=== PATIENT | female | born 1950 | race Caucasian/White ===

== ENCOUNTER → 2024-02-24 12:22 | Outpatient (REF) | payer OTHER, SELFPAY | LOC: HWWDC 12:22 | PROVIDERS: ATTENDING PHYSICIAN Obstetrics & Gynecology Gynecology; FAMILY PHYSICIAN Family Medicine | DX: Z12.31 Encounter for screening mammogram for malignant neoplasm of breast (principal) | CPT/HCPCS: 77063; 77067 ==

== ENCOUNTER 2024-05-08 19:15 | Emergency (ER) | payer OTHER, SELFPAY ==
[2024-05-08 19:18] VITALS: BP 185/88
--- NOTE | 2024-05-08 20:09 | ED.GENMED ---
History of Present Illness
General
Chief Complaint: Fall
Source: patient
Exam Limitations: none
Time Seen by Provider: 05/08/24 19:51
Nursing documentation reviewed up to this point in time: agreed with
History of Present Illness
History of Present Illness:
Patient reports trip and fall injury 1 week ago. Seen at , had xrays of left ribs, right lower leg. No frature noted. To ED tonight because of large amt of bruising to left lower leg. Reports swelling to left breast. Brought to ED by spouse
for eval.
Past History
Past History
ED Past Medical History: HTN and Hypercholesterolemia
ED Past Surgical History: Cholecystectomy, Gynecological and Other
Social History
Tobacco: Non-smoker
Personal:
Living: with family
Review of Systems
Review of Systems
Allergies reviewed?: Yes
All Other Systems: ROS reviewed and negative except as documented in HPI and ROS
Constitutional: Reports no symptoms
EENT: Reports no symptoms
Respiratory: Reports no symptoms
Cardiac: Reports no symptoms
ABD/GI: Reports no symptoms
: Reports no symptoms
Musculoskeletal: Reports no symptoms
Skin: Reports other (hematoma, bruising LLE, reports swelling to left breast.)
Neurological: Reports no symptoms
Psychiatric: Reports no symptoms
Phy Exam
General Physical Exam
General Presentation: well appearing and no apparent distress
General age: appears stated age
General Skin: warm and dry
General Habitus: normal
General Mental: alert
General Hydration: appears well hydrated
Musculoskeletal Exam
Musculoskeletal Exam: full ROM and neuro vasc intact
Skin Exam
Skin Exam: warm/dry, no rash and other (Large hematoma just below left knee. Bruising tracking down redmond. Full ROM to LLE. No bruising to left breast. She feels left breast is swollen. Breast is soft, no swelling appreciated by me. No bruising
noted)
Psychiatric Exam
Psychiatric Exam: normal mood/affect
Course
Vital Signs
Initial and Last Documented VS:
Initial Vital Signs
Temp Pulse Resp BP Pulse Ox
97.9 F 79 20 185/88 97
05/08/24 19:18 05/08/24 19:18 05/08/24 19:18 05/08/24 19:18 05/08/24 19:18
Last Documented Vital Signs
Temp Pulse Resp BP Pulse Ox
97.9 F 79 20 185/88 97
05/08/24 19:18 05/08/24 19:18 05/08/24 19:18 05/08/24 19:18 05/08/24 19:18
*Critical Care Note
Total Time (30-74mins, 75-104mins- exclusive of procedures): Not Applicable
Update Note
Update Note:
Patient to ED for eval of bruising to LLE, pain and swelling to left breast s/p fall 1 week ago. Large hematom to left lower leg below knee. Full ROM, neurovascularly intact. No bruising to left breast. Breast tissue is soft, no swelling
appreciated. Recommend fallon wrapping during day, contimue to ice breast, can switch to heat to LLE. SHe is discharged home and will follow up wt PCP.
ED Attending Note
-
Portions of this chart may have been created with voice recognition software.� Occasional wrong word or��sound alike� substitutions may have occurred due to the inherent limitations of voice recognition software.
Discharge Plan
Departure
Patient Disposition: Home (Routine Discharge)
Date of Disposition: 05/08/24
Time of Disposition: 20:08
Patient with high blood pressure during this ER visit?: No
Condition: Good
Covid-19: Not Applicable
Discharge Problem:
Contusion of breast, Contusion of left leg
Instructions: Hematoma
Activity Restrictions/Additional Instructions:
FOllow up with your family doctor.
Interventions
Interventions:
*Risk Screen - Suicide Last Done: 05/08/24 19:18
*General Assessment Last Done: 05/08/24 19:18
*Neglect/Abuse Screening Last Done: 05/08/24 19:18
ED-Musculoskeletal Assessment Last Done: 05/08/24 20:11
ED- Neurological Assessment Last Done: 05/08/24 20:11
ED-Skin Assessment Last Done: 05/08/24 20:11
Discharge Date and Time
Print Language: SLOVAK
[2024-05-08 20:19] VITALS: BP 189/85
== END 2024-05-08 20:22 | disposition home or self-care (01) ==
LOC: EMR 19:15
PROVIDERS: EMERGENCY PHYSICIAN Emergency Medicine; FAMILY PHYSICIAN Family Medicine
DX: S80.12XA Contusion of left lower leg, initial encounter (principal); S20.02XA Contusion of left breast, initial encounter; W01.0XXA Fall on same level from slipping, tripping and stumbling without subsequent striking against object, initial encounter; I10 Essential (primary) hypertension; E78.00 Pure hypercholesterolemia, unspecified; Z90.49 Acquired absence of other specified parts of digestive tract
CPT/HCPCS: 99282

== ENCOUNTER → 2024-07-13 09:21 | Outpatient (REF) | payer OTHER, SELFPAY | LOC: HWRAD 09:21 | PROVIDERS: ATTENDING PHYSICIAN Obstetrics & Gynecology Gynecology; FAMILY PHYSICIAN Family Medicine | DX: Z13.820 Encounter for screening for osteoporosis (principal); M85.89 Other specified disorders of bone density and structure, multiple sites; Z78.0 Asymptomatic menopausal state | CPT/HCPCS: 77080 ==

== ENCOUNTER 2024-07-14 10:53 | Emergency (ER) | payer OTHER, SELFPAY ==
[2024-07-14 11:11] VITALS: BP 190/98
[2024-07-14 11:34] LABS: % Basophils 0.4 % (0-2); % Eosinophils 2.8 % (0-6); % Immature Granulocytes 0.3 % (0-0.5); % Lymphocytes 25.3 % (20.5-51.1); % Monocytes 8.3 % (1.7-9.3); % Neutrophils 62.9 % (42.2-75.2); Absolute Basophils 0.1 10^3/uL (0-0.2); Absolute Eosinophils 0.3 10^3/uL (0-0.7); Absolute Lymphocytes 2.9 10^3/uL (1.2-3.4); Absolute Neutrophils 7.3 10^3/uL (1.4-6.5); Hemoglobin 13.5 g/dL (12.0-16.0); Mean Corp Hgb Conc. 32.1 g/dL (33.0-37.0); Mean Corpuscular Hgb 26.5 pg (27.0-31.0); Mean Corpuscular Volume 82.5 fL (81.0-99.0); Mean Platelet Volume 7.9 fL (7.4-10.4); Nucleated Red Blood Cells % 0 %; Platelet Count 378 10^3/uL (130-400); Red Blood Cell Count 5.09 10^6/uL (4.20-5.40); Red Cell Dist. Width 13.9 % (11.5-14.5); White Blood Cell Count 11.6 10^3/uL (4.8-10.8)
[2024-07-14 11:41] LABS: INR 1.09; PT 14.4 Sec (11.4-14.6)
[2024-07-14 11:45] LABS: ALT (SGPT) 24 U/L (0-35); AST (SGOT) 24 U/L (14-36); Albumin 4.5 g/dl (3.5-5.0); Alkaline Phosphatase 60 U/L (38-126); Blood Urea Nitrogen 23 mg/dl (7-17); Calcium 9.9 mg/dl (8.4-10.2); Carbon Dioxide 29 mmol/L (22-30); Chloride 98 mmol/L (98-107); Glucose 95 mg/dl (70-99); Potassium 3.9 mmol/L (3.5-5.1); Sodium 134 mmol/L (135-145); Total Bilirubin 0.8 mg/dl (0.2-1.3); Total Protein 7.1 g/dl (6.3-8.2); eGFR > 60.00
[2024-07-14 11:57] LABS: Troponin I < 0.012 ng/ml
[2024-07-14 12:49] VITALS: BP 152/84
[2024-07-14 13:00] VITALS: BP 163/84
--- NOTE | 2024-07-14 13:32 | ED.GENMED ---
History of Present Illness
General
Chief Complaint: Chest Pain
Source: patient
Time Seen by Provider: 07/14/24 13:15
History of Present Illness
History of Present Illness:
73yoF with a history of hypertension, hyperlipidemia, and type 2 diabetes presenting with her for evaluation of chest pain. Patient reports central and right sided chest discomfort that initially began yesterday afternoon. The pain woke
her up from sleep initially. Pain is intermittent and last for several seconds at a time. Nothing seems to make the pain better or worse. Pain is nonradiating. She is otherwise asymptomatic and denies any fevers, cough, diaphoresis, nausea,
vomiting, shortness of breath, dizziness, paresthesias. She denies any history of coronary artery disease.
Past History
Past History
ED Past Medical History: HTN and Hypercholesterolemia
ED Past Surgical History: Cholecystectomy, Gynecological and Other
Social History
Tobacco: Non-smoker
Personal:
Living: with family
Phy Exam
General Physical Exam
General Presentation: well appearing and no apparent distress
General age: appears stated age
General Skin: warm and dry
General Habitus: normal
General Mental: alert
ENT Exam
ENT Exam: normocephalic
Cardiovascular Exam
Cardiovascular Exam: regular rate/rhythm, no murmur and normal peripheral pulses (2+ radial pulses bilaterally)
Pulmonary Exam
Pulmonary Exam: lungs clear, no respiratory distress, no rales, no crackles, no rhonchi and no wheezing
Neurological Exam
Neurological Exam: alert
Carlos Coma Scale
Eye Opening: Spontaneous
Verbal Response: Oriented
Motor Response: Obeys Commands
GCS Total Score: 15
Skin Exam
Skin Exam: normal color and warm/dry
Psychiatric Exam
Psychiatric Exam: normal mood/affect
Scores
Heart Score for Chest Pain Patients
STEMI patient?: No
History: Slightly or Non-Suspicious
ECG: Normal
Age: >/= 65 years
Risk Factors: >/= 3 Risk Factors or History of CAD
Troponin: </= Normal Limit
Heart Score for Chest Pain Patients: 4
Heart Score Risk: 20.3% MACE over next 6 weeks
Course
Orders/Labs/Results
Orders:
Orders
07/14/24 10:54
EKG [Electrocardiogram (*1)] Urgent
Reason for Study: Chest Pain
EKG- Treatment ONCE
07/14/24 11:20
Complete Blood Count/With Diff Urgent
Comprehensive Metabolic Panel Urgent
PT/INR [Prothrombin Time] Urgent
Troponin I Urgent
07/14/24 13:32
Electrocardiogram (*1) Urgent
Reason for Study: Chest Pain
EKG- Treatment ONCE
CR Chest - 2 Views Urgent
Comment:
Reason For Exam: CP
07/14/24 13:34
Troponin I Urgent
Abnormal Lab Results
07/14/24
11:20
WBC 11.6 H 10^3/uL
(4.8-10.8)
MCH 26.5 L pg
(27.0-31.0)
MCHC 32.1 L g/dL
(33.0-37.0)
Absolute Neuts (auto) 7.3 H 10^3/uL
(1.4-6.5)
Absolute Monos (auto) 1.0 H 10^3/uL
(0.1-0.6)
Sodium 134 L mmol/L
(135-145)
BUN 23 H mg/dl
(7-17)
07/14/24 11:20
07/14/24 11:20
Vital Signs
Initial and Last Documented VS:
Initial Vital Signs
Temp Pulse Resp Pulse Ox
98.4 F 74 18 98
07/14/24 11:08 07/14/24 11:08 07/14/24 11:08 07/14/24 11:08
Last Documented Vital Signs
Temp Pulse Resp BP Pulse Ox
98.4 F 68 20 163/84 97
07/14/24 11:08 07/14/24 13:45 07/14/24 13:30 07/14/24 13:00 07/14/24 13:45
MDM/Problems Addressed
Differential Diagnosis Includes:
73yoF here with R sided chest pain since yesterday. Intermittent lasting several seconds at a time. Nothing seems to make it better or worse. Otherwise asymptomatic. She is hypertensive with otherwise normal vitals. She is well appearing in no
distress. Exam reassuring. Differential diagnosis includes but is not limited to: ACS, arrhythmia, pneumonia, pleural effusion, musculoskeletal, less likely PE
Initial ED plan: Cardiac labs and EKG obtained in triage. EKG shows NSR without ischemic changes and troponin WNL. Will check repeat troponin/EKG and CXR.
*EKG
Interpreted by ED Provider?: Yes
EKG Intrepretation Date: 07/14/24
Heart Rate: 70
Rate: normal
Rhythm: sinus
[place]: normal axis
Interval: normal interval
QRS Pattern: normal QRS
Ischemia: no ischemia
*Critical Care Note
Total Time (30-74mins, 75-104mins- exclusive of procedures): Not Applicable
Update Note
Update Note:
Repeat EKG and troponin unchanged. CXR is clear. HEART score is 4. No indication for admission at this and patient eager to be discharged. Advised close f/u with PCP and ED return precautions discussed. She expressed understanding and was discharged
in stable condition.
ED Attending Note
-
Portions of this chart may have been created with voice recognition software.� Occasional wrong word or��sound alike� substitutions may have occurred due to the inherent limitations of voice recognition software.
Discharge Plan
Departure
Patient Disposition: Home (Routine Discharge)
Date of Disposition: 07/14/24
Time of Disposition: 14:37
Patient with high blood pressure during this ER visit?: Yes
Discharge Problem:
Chest pain
Instructions: Chest Pain PCP Follow Up
Referrals:
Eleno Finnegan MD [Family Provider] -
Activity Restrictions/Additional Instructions:
Please call your family doctor on Tuesday to schedule a follow-up appointment. Return to the ER with any new or worsening symptoms.
Interventions
Interventions:
*Risk Screen - Suicide Last Done: 07/14/24 11:08
*General Assessment Last Done: 07/14/24 11:08
*Neglect/Abuse Screening Last Done: 07/14/24 11:08
*ED COVID-19 Vaccine History Last Done: 07/14/24 11:08
*Nursing Disposition Last Done: 07/14/24 14:51
ED- Cardiac Assessment Last Done: 07/14/24 13:32
Discharge Date and Time
Discharge Date/Time: 07/14/24 14:52
Print Language: IRISH
[2024-07-14 14:18] LABS: Troponin I < 0.012 ng/ml
== END 2024-07-14 14:52 | disposition home or self-care (01) ==
LOC: EMR 10:53
PROVIDERS: Physician Assistant; EMERGENCY PHYSICIAN Emergency Medicine; FAMILY PHYSICIAN Family Medicine
DX: R07.89 Other chest pain (principal); I10 Essential (primary) hypertension; E78.00 Pure hypercholesterolemia, unspecified; E11.9 Type 2 diabetes mellitus without complications; Z90.49 Acquired absence of other specified parts of digestive tract
CPT/HCPCS: 99285; 71046; 80053; 84484; 85025; 85610; 93005

== ENCOUNTER 2024-07-20 05:16 | Inpatient (IN) | payer OTHER, SELFPAY ==
[2024-07-19 22:40] VITALS: BP 132/59
[2024-07-19 22:42] VITALS: BP 132/59; BMI 34.6
[2024-07-19 22:46] LABS: % Basophils 0.4 % (0-2); % Eosinophils 0.4 % (0-6); % Immature Granulocytes 0.7 % (0-0.5); % Lymphocytes 5.5 % (20.5-51.1); % Monocytes 3.3 % (1.7-9.3); % Neutrophils 89.7 % (42.2-75.2); Absolute Basophils 0.1 10^3/uL (0-0.2); Absolute Eosinophils 0.1 10^3/uL (0-0.7); Absolute Immature Granulocytes 0.1 10^3/uL (0-0.05); Absolute Lymphocytes 0.9 10^3/uL (1.2-3.4); Absolute Monocytes 0.5 10^3/uL (0.1-0.6); Absolute Neutrophils 14.6 10^3/uL (1.4-6.5); Hematocrit 43.7 % (37.0-47.0); Hemoglobin 13.9 g/dL (12.0-16.0); Mean Corp Hgb Conc. 31.8 g/dL (33.0-37.0); Mean Corpuscular Hgb 26.4 pg (27.0-31.0); Mean Corpuscular Volume 82.9 fL (81.0-99.0); Mean Platelet Volume 7.8 fL (7.4-10.4); Nucleated Red Blood Cells % 0 %; Platelet Count 323 10^3/uL (130-400); Red Blood Cell Count 5.27 10^6/uL (4.20-5.40); Red Cell Dist. Width 13.9 % (11.5-14.5); White Blood Cell Count 16.2 10^3/uL (4.8-10.8)
[2024-07-19 23:09] LABS: Blood Urea Nitrogen 21 mg/dl (7-17); Calcium 8.3 mg/dl (8.4-10.2); Carbon Dioxide 25 mmol/L (22-30); Chloride 99 mmol/L (98-107); Estimated Creatinine Clearance 77 ml/min; Glucose 160 mg/dl (70-99); Sodium 132 mmol/L (135-145); eGFR > 60.00
[2024-07-19 23:30] VITALS: BP 124/63
[2024-07-20] VITALS (14 sets, daily range): BP systolic 111–154; BP diastolic 57–87; BMI 34.6
[2024-07-20 00:43] LABS: Troponin I < 0.012 ng/ml
--- NOTE | 2024-07-20 00:47 | ED.GENMED ---
History of Present Illness
General
Chief Complaint: Fall
Time Seen by Provider: 07/19/24 23:47
History of Present Illness
History of Present Illness:
73-year-old female presents to the emergency department for evaluation of right ankle injury after a fall. She states for the past several days she has felt lightheaded and nauseated, went to the bathroom when she felt dizzy and fell to the ground.
Arrives with an obvious deformity to the right ankle. Denies any current dizziness. Does have some degree of heartburn. Was seen in this ER 5 days ago for chest pain
Past History
Past History
ED Past Medical History: HTN and Hypercholesterolemia
ED Past Surgical History: Cholecystectomy, Gynecological and Other
Social History
Tobacco: Non-smoker
Personal:
Living: with family
Review of Systems
Review of Systems
Allergies reviewed?: Yes
All Other Systems: ROS reviewed and negative except as documented in HPI and ROS
Phy Exam
Physical Exam
Physical Exam:
GEN: Well appearing, NAD, WDWN
HEENT: Oral mucosa moist, no scleral icterus
Cardiac: Regular rate
Lung: No respiratory distress, no tachypnea
MSK: Deformity to the right ankle with an anteriorly prominent distal tibia, no open wounds
Skin: Good color, no pallor or jaundice, no rashes
Neuro: AO x3, moves all extremities freely
Psych: Calm, cooperative
Course
Orders/Labs/Results
Orders:
Orders
07/19/24 22:39
Electrocardiogram (*1) Urgent
Reason for Study: Chest Pain
Ankle, Right 3 view CR [CR Ankle - Right Min 3 Views *] Urgent
Comment:
Reason For Exam: fell, right ankle deformity
07/19/24 22:40
EKG- Treatment ONCE
07/19/24 22:41
Basic Metabolic Panel Urgent
Comment: NO K
Complete Blood Count/With Diff Urgent
07/20/24 00:09
Troponin I Urgent
07/20/24 01:08
CR Ankle - Right 2 Views Urgent
Comment:
Reason For Exam: post reduction
07/20/24 01:45
Calcium 200mg(Ca. Carb. 500mg) [Tums Chewable Tablet] 400 mg PO NOW STA
Abnormal Lab Results
07/19/24
22:41
WBC 16.2 H 10^3/uL
(4.8-10.8)
MCH 26.4 L pg
(27.0-31.0)
MCHC 31.8 L g/dL
(33.0-37.0)
Abs Immat Gran (auto) 0.1 H 10^3/uL
(0-0.05)
Absolute Neuts (auto) 14.6 H 10^3/uL
(1.4-6.5)
Absolute Lymphs (auto) 0.9 L 10^3/uL
(1.2-3.4)
Immature Gran % 0.7 H %
(0-0.5)
Neutrophils % 89.7 H %
(42.2-75.2)
Lymphocytes % 5.5 L %
(20.5-51.1)
Sodium 132 L mmol/L
(135-145)
BUN 21 H mg/dl
(7-17)
Glucose 160 H mg/dl
(70-99)
Calcium 8.3 L mg/dl
(8.4-10.2)
07/19/24 22:41
07/20/24 00:22
Vital Signs
Initial and Last Documented VS:
Initial Vital Signs
BP
132/59
07/19/24 22:40
Last Documented Vital Signs
Temp Pulse Resp BP Pulse Ox
97.9 F 87 17 129/62 98
07/19/24 22:42 07/20/24 03:30 07/20/24 03:30 07/20/24 03:00 07/20/24 03:30
Procedures
Splinting/Sling Placement
Right Ankle:
Procedure completed by: Liam Hector PA-C
Pre-splint extermity exam: abnormal
Type of splint: sugar-tong and posterior short leg
Splint material: fiberglass
Splint checked by provider?: Yes
Normal distal neurovascular exam?: Yes
Joint/Fracture Reduction
Right Ankle:
Indication for procedure:: Displaced trimalleolar fracture
Procedure completed by: Liam Hector PA-C
Joint reduced: without anesthesia
Anesthesia/sedation: 1% Lidocaine and Injection to joint space
Injury was: closed
Further treatement: needs further treatment
Post reduction exam: unstable
Capillary Refill: normal
Normal distal neurovascular exam?: Yes
MDM/Problems Addressed
MDM/Problems Addressed:
Given patient's advanced age she is not suitable to be discharged home with crutches for ambulation. Trimalleolar fracture required reduction with hematoma block anesthesia in the emergency department and this was successful and postreduction
x-rays. Unclear etiology to her general malaise and vomiting that brought her in, she does have leukocytosis however some of this may be acute phase reactant due to pain. Will be admitted to the hospitalist service for further management and
consideration of PT OT and case management consultations
*Critical Care Note
Total Time (30-74mins, 75-104mins- exclusive of procedures): Not Applicable
ED Attending Note
-
Portions of this chart may have been created with voice recognition software.� Occasional wrong word or��sound alike� substitutions may have occurred due to the inherent limitations of voice recognition software.
Discharge Plan
Departure
Patient Disposition: Admit
Date of Disposition: 07/20/24
Time of Disposition: 02:55
Presentation/result/management discussed w/ accepting MD/DO: Hospitalist
Discharge Problem:
Closed right trimalleolar fracture
Prescriptions:
No Action
doxepin 50 mg Capsule
50 mg PO HS
verapamil 240 mg Tablet Extended Release
240 mg PO DAILY
pravastatin 20 mg Tablet
20 mg PO HS
losartan-hydrochlorothiazide 50-12.5 mg Tablet
1 tab PO QPM
Xiidra 5 % Dropperette
1 drp BOTH EYES DAILY
Ozempic 1 mg/dose (4 mg/3 mL) Pen Injector
1 mg SC GALAN
Referrals:
Eleno Finnegan MD [Family Provider] -
Interventions
Interventions:
*Risk Screen - Suicide Last Done: 07/19/24 22:52
*General Assessment Last Done: 07/19/24 22:52
*Neglect/Abuse Screening Last Done: 07/19/24 22:52
*ED COVID-19 Vaccine History Last Done: 07/19/24 22:52
ED-Musculoskeletal Assessment Last Done: 07/19/24 23:00
ED- Neurological Assessment Last Done: 07/19/24 23:00
ED-Skin Assessment Last Done: 07/19/24 23:00
Discharge Date and Time
Print Language: SCOTTISH
--- NOTE | 2024-07-20 04:31 | W.PN.UPDATE ---
Update Note
Progress Note Update
With R ankle fx
Will require surgery
CT scan ordered by me
Anticipate surgery for Saturday 07/21
thanks
GGMD
--- NOTE | 2024-07-20 05:11 | HPS.HSE ---
Family Physician
-
Family Physician: Eleno Finnegan MD
Chief Complaint
-
R Ankle Pain s/p Fall
History of Present Illness
Patient is a 73y F with PMH significant for hypertension, dyslipidemia and insomnia who presents to ED complaining of R ankle pain s/p fall. Patient states that she was in the bathroom this evening when she developed sudden onset of epigastric
pain. She notes that she gets this periodically and it has been attributed to hiatal hernia. She became dizzy (which has also happened during such episodes in the past) and she fell. She did not lose consciousness nor strike her head. Patient
noted immediate pain in the R ankle after the fall. She presented to the ED for evaluation where imaging reveals trimalleolar fracture of the R ankle.
Medical History
Past Medical History
Past Medical History: Reports Other
Additional Past Medical History:
Hypertension
DM-II
Dyslipidemia
Depression / Insomnia
GERD / Hiatal Hernia
Past Surgical History: Reports Other
Additional Past Surgical History:
Abdominoplasty
Bilateral Breast Reduction
Left TKA
Cholecystectomy
Tubal Ligation
Social History
Tobacco: Former Smoker (Quit smoking over 50 years ago.)
Alcohol: Occasional
Drug: None
Family History
Family History: Other (Father: Premature CAD (30s))
Allergies / Home Medications
Allergies reflects when Allergies were last updated in [facility].
Home Medications with original date entered in [facility]
Allergy/Medication List:
Allergies
Allergy/AdvReac Type Severity Reaction Status Date / Time
clarithromycin [From Biaxin] Allergy Unknown Verified 05/08/24 19:23
Penicillins Allergy Unknown Verified 05/08/24 19:23
Sulfa (Sulfonamide Allergy Unknown Verified 05/08/24 19:23
Antibiotics)
Home Medications
doxepin 50 mg capsule 50 mg PO HS 07/19/24
lifitegrast 5 % eye drops in a dropperette (Xiidra) 1 drp BOTH EYES DAILY 07/19/24
losartan 50 mg-hydrochlorothiazide 12.5 mg tablet 1 tab PO QPM 07/19/24
pravastatin 20 mg tablet 20 mg PO HS 07/19/24
semaglutide 1 mg/dose (4 mg/3 mL) subcutaneous pen injector (Ozempic) 1 mg SC GALAN 07/19/24
verapamil 240 mg tablet,extended release 240 mg PO DAILY 07/19/24
Review of Systems
-
History Source: Patient
A 12 point ROS was completed and negative except as noted: Yes
Constitutional: Denies Fever or Chills
Respiratory: Denies Cough or Trouble Breathing
Cardiac: Denies Chest Pain or Palpitations
Abdomen/GI: Denies Abdominal Pain, Nausea, Vomiting or Diarrhea
: Denies Dysuria or Frequency
Musculoskeletal: Reports Joint Pain and Joint Swelling; Denies Edema
Neurological: Reports Dizzy; Denies Headache
Psych: Denies Depression or Anxiety
Physical Exam
Vital Signs
Vital Signs
Temp Pulse Resp BP Pulse Ox
97.9 F 72 14 134/72 96
07/19/24 22:42 07/20/24 04:00 07/20/24 04:00 07/20/24 04:00 07/20/24 04:00
Physical Exam
General: Other (73y F in no acute distress.)
HEENT: Moist mucous membranes
Respiratory: Clear; No Wheezes, Rales or Rhonchi
Cardiac: S1/S2 and Regular Rhythm; No Murmur
GI: Soft, Non Tender, Non Distended and Normal Bowel Sounds
Musculoskeletal: No Clubbing, No Cyanosis and Other (R lower leg wrapped in JOHNNY / splint. Neurovasc intact distally.)
Neuro: AO x 3
Laboratory Results
-
07/19/24 22:41
07/20/24 00:22
Laboratory Results
Total Bilirubin Cancelled 07/20/24 00:22
AST Cancelled 07/20/24 00:22
ALT Cancelled 07/20/24 00:22
Alkaline Phosphatase Cancelled 07/20/24 00:22
Troponin I < 0.012 ng/ml 07/20/24 00:09
Impression/Plan
-
A/P: Patient is a 73y F with PMH significant for hypertension, DM-II and hiatal hernia who presents to ED complaining of R ankle pain s/p fall.
Trimalleolar Fracture of R Ankle
- Admit for further evaluation and treatment.
- Maintain splint / immobilization. Non-weight bearing.
- Pain control / supportive care.
- Ortho eval for operative repair.
Fall at Home
Prolonged QTc
- No reported syncope, LOC, etc.
- Monitor on tele overnight / repeat EKG in the AM.
- Avoid QT prolonging medications.
- Cardiology evaluation for additional recommendations.
Benign Hypertension
- Hold lisinopril / HCT acutely.
- Continue verapamil with holding parameters.
Depression / Insomnia
- Hold doxepin for now given prolonged QT.
Pre-DM
- Patient reports 'pre-diabetes' - currently on semaglutide.
- Hold this acutely.
- Follow glucose and cover with SSI if needed.
- Update A1C.
DVT Prophylaxis: SCDs
Code Status: Full
--- NOTE | 2024-07-20 07:11 | PTCARENOTE ---
Pt received at 0610 on 07/20. Resident pulled over from stretcher to bed d/t Right ankle fx. Pt placed on tele and showing NSR. VSS. Pt alert and oreinted x3. Pt oriented to room and able to make needs known, call denise within reach.
--- NOTE | 2024-07-20 07:35 | CON.CAR ---
Addendum entered and electronically signed by Alexus Dye DO 07/20/24 18:11:
I saw and examined the patient.
The Outside Physical Damage Appraiser's note was reviewed and I agree with the note.
Comment: I had the pleasure to see Evon for preoperative cardiac risk assessment following her presentation to [facility] ED after a fall at home resulting in displaced fracture of her right ankle. Evon is a 73 year old female with PMH of
HTN, HLD, insomnia, prediabetes and hiatal hernia. She presented to [facility] after a fall at home. She was in the bathroom yesterday evening and felt like she was starting with a hiatal hernia attack with sudden onset epigastric pain. Pain became more
intense and she felt lightheaded and fell down to the ground. She notes she did not hit her head, but states it all happened so quick she is unsure if she lost consciousness or not. She noted immediate pain in her R ankle after the fall and came to
ER for evaluation. In ER, she was noted to have trimalleolar fracture of the R ankle. She was admitted and plan is for surgical repair in AM 07/21. She reports no significant cardiac history, however was previously seen by a health claims examiner in [place]
'decades ago'. ECG in ER SR with prolonged QTc of 558ms. She notes she has not been drinking much fluid the past few days and feels she is likely dehydrated. Labwork overall unremarkable, however K not resulted due to hemolysis. She notes history of
syncope that is typically related to hiatal hernia pain which makes her feel lightheaded. Of note, she was seen in [facility] last week for evaluation of chest discomfort that started while sitting watching TV on her couch. She states pain last week was
different from her usual hiatal hernia pain and was higher in her chest, more substernal. Workup in ER at the time was unremarkable and she believes it was due to gas. She has had no recurrence of the chest pain since that time. Feels well currently
other than feeling tired.
Repeat electrocardiogram 07/20/2024: Normal sinus rhythm with voltage criteria for LVH and possible inferior infarct pattern [also noted in 2021 study]. QTc interval has improved now 421 ms
2D echocardiogram 07/20/2024 with normal biventricular size and systolic function without regional wall motion abnormalities and EF estimated 61% with grade 1 diastolic dysfunction. She has trileaflet sclerotic aortic valve with mild aortic
regurgitation. Trace mitral and tricuspid regurgitation. No evidence of pulmonary hypertension. No pericardial effusion.
Pertinent lab work: WBC elevated 16.2. Hemoglobin 13.9. Platelets 332. Sodium remains low at 130, previously 132. Potassium 3.8. BUN/creatinine 22/0.7. Cardiac troponin less than 0.012. Magnesium 2.1.
Chest x-ray 2 views 07/14/2024 with clear lungs and no acute disease of the chest
General: NAD
HEENT: mmm
Respiratory: Bronchovesicular breath sounds, clear.
Cardiac: S1/S2 and Regular Rhythm, no murmur
EXT: No edema. Splint on right ankle
Neuro: AO x 3 and Nonfocal/Grossly Intact
Plan:
Plan:
-Presented after fall which resulted in trimalleolar R ankle fracture.
-Orthopedics consulted; plan is for surgical repair 07/21.
-Patient's echocardiogram shows normal biventricular size and systolic function with no hemodynamically significant valve pathology. Repeat EKG stable without acute ischemic changes and improved QTc interval.
-No arrhythmias noted so far on telemetry
-Stable blood pressure/heart rate trends
-Troponin not elevated
-She is lower cardiac risk and may proceed with surgery as planned.
-Please continue on telemetry monitoring in the perioperative period. Please repeat twelve-lead EKG following surgery
History of dizziness/lightheadedness prior to fall with history of prior syncope in the setting of GI pain suggestive of vasovagal events
-Continue to monitor on telemetry
-Consider outpatient nuclear monitoring technician
-Avoid QT prolonging agents
-Discontinue hydrochlorothiazide given hyponatremia and monitor for improvement
-Recommend outpatient cardiac follow-up
History of hypertension
-Would hold hydrochlorothiazide given hyponatremia
-Monitor blood pressure trends losartan currently held
-Continue verapamil
History of type 2 diabetes mellitus
-On outpatient Ozempic-please make anesthesia aware
-Consider checking hemoglobin A1c if not recently done
-Diabetic management per medicine service
History of hyperlipidemia on pravastatin�continue
Original Note:
Consultation
Consultation Request
Date/Time Consultation Requested: 07/20/2024
Date/Time Consultation Performed: 07/20/2024
Requesting Provider: Dr. Stanley
Performing Provider: Keren Killian PA-C for Dr. Dye
Reason for Consultation: Fall, prolonged QT
Medical History
-
History of Present Illness:
HPI: Evon is a 73 year old female with PMH of HTN, HLD, insomnia, prediabetes and hiatal hernia. She presented to [facility] after a fall at home. She was in the bathroom yesterday evening and felt like she was starting with a hiatal hernia attack with
sudden onset epigastric pain. Pain became more intense and she felt lightheaded and fell down to the ground. She notes she did not hit her head, but states it all happened so quick she is unsure if she lost consciousness or not. She noted immediate
pain in her R ankle after the fall and came to ER for evaluation. In ER, she was noted to have trimalleolar fracture of the R ankle. She was admitted and plan is for surgical repair in AM 12. She reports no significant cardiac history, however
was previously seen by a health claims examiner in [place] 'decades ago'. ECG in ER SR with prolonged QTc of 558ms. She notes she has not been drinking much fluid the past few days and feels she is likely dehydrated. Labwork overall unremarkable, however K
not resulted due to hemolysis. She notes history of syncope that is typically related to hiatal hernia pain which makes her feel lightheaded. Of note, she was seen in [facility] last week for evaluation of chest discomfort that started while sitting
watching TV on her couch. She states pain last week was different from her usual hiatal hernia pain and was higher in her chest, more substernal. Workup in ER at the time was unremarkable and she believes it was due to gas. She has had no recurrence
of the chest pain since that time. Feels well currently other than feeling tired.
PMH:
HTN
HLD
Prediabetes
Insomnia
GERD/Hiatal hernia
Past Medical History
Past Medical History: Other (In HPI)
Past Surgical History: Other (b/l breast reduction, L TKA, cholecystectomy, tubal ligation)
Social History
Tobacco: Former Smoker
Alcohol: Occasional
Drug: None
Personal:
Living: With Family
Employment: Retired
Family History
Family History: Early CAD (Father had TN in his 30s)
Allergies / Home Medications
Allergy/AdvReac Type Severity Reaction Status Date / Time
clarithromycin [From Biaxin] Allergy Unknown Verified 05/08/24 19:23
Penicillins Allergy Unknown Verified 05/08/24 19:23
Sulfa (Sulfonamide Allergy Unknown Verified 05/08/24 19:23
Antibiotics)
�Medication �Instructions �Recorded �Confirmed �Type
doxepin 50 mg capsule 50 mg PO HS 07/19/24 07/19/24 History
lifitegrast 5 % eye drops in a 1 drp BOTH EYES DAILY 07/19/24 07/19/24 History
dropperette (Xiidra)
losartan 50 mg-hydrochlorothiazide 1 tab PO QPM 07/19/24 07/19/24 History
12.5 mg tablet
pravastatin 20 mg tablet 20 mg PO HS 07/19/24 07/19/24 History
semaglutide 1 mg/dose (4 mg/3 mL) 1 mg SC GALAN 07/19/24 07/19/24 History
subcutaneous pen injector (Ozempic)
verapamil 240 mg tablet,extended 240 mg PO DAILY 07/19/24 07/19/24 History
release
Review of Systems
-
History Source: Patient
All other systems: Negative unless noted
Physical Exam
Vital Signs
Temp Pulse Resp BP Pulse Ox
98.2 F 75 18 154/70 98
07/20/24 06:23 07/20/24 06:23 07/20/24 06:23 07/20/24 06:23 07/20/24 06:23
Lab Results
07/19/24 22:41
Troponin I < 0.012 ng/ml 07/20/24 00:09
Physical Exam
General: Well Developed, Well Nourished and No Apparent Distress
HEENT: Normocephalic, Anicteric and Moist Mucous Membranes
Respiratory: Clear and Non Labored Respirations
Cardiac: S1/S2 and Regular Rhythm
Musculoskeletal: No Clubbing and No Cyanosis
Skin: Warm and Dry
Neuro: AO x 3 and Nonfocal/Grossly Intact
Psych: Calm
Impression / Plan
-
PCP: Dr. Finnegan
Tank Truck Milk Receiver: None prior to admission
Impression:
Presented with fall, lightheadedness
Trimalleolar R ankle fracture
Prolonged QT on ECG
Possible syncope
HTN
HLD
Prediabetes
Insomnia
GERD/Hiatal hernia
Echo 07/20/2024: Study pending
Plan:
-Presented after fall which resulted in trimalleolar R ankle fracture. Plan is for surgical repair 07/21.
-Reports sudden onset dizziness/lightheadedness prior to fall. Does not believe she lost consciousness or hit her head.
-Does have history of syncope which she feels have been related to pain from hiatal hernia, happening once every few years.
-No recent cardiac evaluation. Will check echo.
-No arrhythmias noted on tele. HR stable. Continue to follow.
-QTc prolonged on initial ECG at 558ms. In SR.
-Labs from last night hemolyzed. Repeat BMP and check magnesium this AM.
-Repeat ECG to reassess QT.
-No recurrent chest pain since last week. Troponin negative x1.
-BP elevated this AM before meds. Follow throughout the day. On verapamil 240mg daily. Losartan/HCTZ on hold.
HPI: Evon is a 73 year old female with PMH of HTN, HLD, insomnia, prediabetes and hiatal hernia. She presented to [facility] after a fall at home. She was in the bathroom yesterday evening and felt like she was starting with a hiatal hernia attack with
sudden onset epigastric pain. Pain became more intense and she felt lightheaded and fell down to the ground. She notes she did not hit her head, but states it all happened so quick she is unsure if she lost consciousness or not. She noted immediate
pain in her R ankle after the fall and came to ER for evaluation. In ER, she was noted to have trimalleolar fracture of the R ankle. She was admitted and plan is for surgical repair in AM 07/21. She reports no significant cardiac history, however
was previously seen by a health claims examiner in [place] 'decades ago'. ECG in ER SR with prolonged QTc of 558ms. She notes she has not been drinking much fluid the past few days and feels she is likely dehydrated. Labwork overall unremarkable, however K
not resulted due to hemolysis. She notes history of syncope that is typically related to hiatal hernia pain which makes her feel lightheaded. Of note, she was seen in [facility] last week for evaluation of chest discomfort that started while sitting
watching TV on her couch. She states pain last week was different from her usual hiatal hernia pain and was higher in her chest, more substernal. Workup in ER at the time was unremarkable and she believes it was due to gas. She has had no recurrence
of the chest pain since that time. Feels well currently other than feeling tired.
Data Reviewed
-
EKG: Tracing Personally Visualized and interpreted
Radiology: Report Reviewed by me
Labs: Labs Reviewed by me
[2024-07-20 08:11] LABS: Glucose - Point of Care 97 mg/dl (70-99)
[2024-07-20] MEDS: CALAN EXTENDED RELEASE 240 MG PO (09:03)
[2024-07-20 09:05] LABS: Blood Urea Nitrogen 22 mg/dl (7-17); Calcium 9.2 mg/dl (8.4-10.2); Carbon Dioxide 29 mmol/L (22-30); Chloride 93 mmol/L (98-107); Estimated Creatinine Clearance 66 ml/min; Glucose 103 mg/dl (70-99); Magnesium 2.1 mg/dl (1.6-2.3); Potassium 3.8 mmol/L (3.5-5.1); Sodium 130 mmol/L (135-145); eGFR > 60.00
[2024-07-20 13:09] LABS: Glucose - Point of Care 97 mg/dl (70-99)
[2024-07-20] MEDS: TYLENOL 650 MG PO (13:23)
--- NOTE | 2024-07-20 15:34 | W.PN.HOSP.TC ---
Today's Communication/Plan
-
73y woman with broken ankle
1. Trimalleolar Fracture of R Ankle
- Maintain splint / immobilization. Non-weight bearing.
- Pain control / supportive care.
- Ortho eval for operative repair. --> surgery tomorrow am
2. Fall at Home
Prolonged QTc
- No reported syncope, LOC, etc.
- Monitor on tele overnight / repeat EKG in the AM.
- Avoid QT prolonging medications.
- Cardiology consult requested
3. Benign Hypertension
- Held lisinopril / HCT acutely.
- Continue verapamil with holding parameters.
4. Depression / Insomnia
- Held doxepin for now given prolonged QT.
5. Pre-DM
- Patient reports 'pre-diabetes' - currently on semaglutide.
- Held this acutely.
- Follow glucose and cover with SSI if needed.
DVT Prophylaxis: SCDs
Code Status: Full
Assessment / Plan
Assessment / Plan
Anticipated Discharge: > 48 hours
Subjective/Interval History
-
Date of Service: July 20, 2024
Feels well. no new issues
Objective Data
-
Labs:
Laboratory Results
07/20/24
08:09
Sodium 130 L
Potassium 3.8
Chloride 93 L
Carbon Dioxide 29
BUN 22 H
Creatinine 0.7
Glucose 103 H
Calcium 9.2
Vital Signs:
Vital Signs
Temp Pulse Resp BP Pulse Ox
99.9 F 73 20 124/65 96
07/20/24 11:00 07/20/24 11:00 07/20/24 11:00 07/20/24 11:00 07/20/24 11:00
I&O
12/26/24 12/27/24 12/28/24
06:59 06:59 06:59
Intake Total 960 / 960
Output Total 700 / 700
Balance 260 / 260
Review of Systems
-
History Source: Patient
All other systems: Reviewed and negative
Physical Exam
-
General: Well Developed, Well Nourished, No Apparent Distress, Comfortable, Conversant and Obese
HEENT: Normocephalic, Atraumatic, Nose Appears Normal and Ears Appear Normal
Respiratory: Clear to Auscultation
Cardiac: Regular Rhythm and S1/S2
GI: Soft, Nontender and Nondistended
Musculoskeletal: No Clubbing and No Cyanosis
Skin: Warm and Dry
Neuro: Awake, Alert, Oriented and AO x 3
Psych: Calm
Data Reviewed
-
Labs: Labs Reviewed by me
[2024-07-20] MEDS: TUMS CHEWABLE TABLET 400 MG PO (16:15)
--- NOTE | 2024-07-20 16:29 | CM ---
Pt seen bedside. Initial assessment completed.
Pt reports that she lives w/ spouse in a condo w/ elevator access
Pt is independent, denies DME use for ambulating or daily functioning
No SNF/VN/PT hx, engaged in OP therapy at [facility] in July for knee
Address, point of contact and insurance verified
PCP: Dr. Finnegan
Pharmacy: [facility]
Pt w/ ankle fx, for OR tomorrow
PT/OT to see following surgery
Plan: CM to await PT/OT evaluation to determine d/c planning
[2024-07-20 17:04] LABS: Glucose - Point of Care 109 mg/dl (70-99)
[2024-07-20] MEDS: DILAUDID 0.5 MG IV (20:21)
[2024-07-20] MEDS: FLUSH (NSS) 1 FLUSH IV (20:22)
[2024-07-20 21:35] LABS: Glucose - Point of Care 128 mg/dl (70-99)
[2024-07-20] MEDS: MELATONIN 5 MG PO (22:58)
[2024-07-21] VITALS (16 sets, daily range): BP systolic 108–153; BP diastolic 52–82
[2024-07-21] MEDS: TYLENOL 650 MG PO ×2 (05:36→21:38)
[2024-07-21 05:46] LABS: Glucose - Point of Care 102 mg/dl (70-99)
[2024-07-21 07:19] LABS: Hematocrit 37.5 % (37.0-47.0); Hemoglobin 12.2 g/dL (12.0-16.0); Mean Corp Hgb Conc. 32.5 g/dL (33.0-37.0); Mean Corpuscular Hgb 26.6 pg (27.0-31.0); Mean Corpuscular Volume 81.7 fL (81.0-99.0); Platelet Count 303 10^3/uL (130-400); Red Blood Cell Count 4.59 10^6/uL (4.20-5.40); White Blood Cell Count 8.2 10^3/uL (4.8-10.8)
[2024-07-21] MEDS: CALAN EXTENDED RELEASE 240 MG PO (07:37)
[2024-07-21 07:42] LABS: Blood Urea Nitrogen 20 mg/dl (7-17); Carbon Dioxide 32 mmol/L (22-30); Chloride 91 mmol/L (98-107); Estimated Creatinine Clearance 58 ml/min; Glucose 111 mg/dl (70-99); Potassium 3.6 mmol/L (3.5-5.1); Sodium 132 mmol/L (135-145); eGFR > 60.00
[2024-07-21 09:06] LABS: Glycohemoglobin (HgbA1c) 5.8 % (4.0-5.6)
--- NOTE | 2024-07-21 09:09 | W.PN.HOSP.TC ---
Today's Communication/Plan
-
see A/P
Assessment / Plan
Assessment / Plan
73y woman with broken ankle
AP:
# Trimalleolar Fracture of R Ankle
Maintain splint / immobilization. Non-weight bearing.
Ortho on board, s/p surgery 07/21
DVT ppx Lovenox SQ per ortho
PT OT eval
# Fall at Home
No reported syncope, LOC, etc.
# Prolonged Qtc has resolved
Avoid QT prolonging medications.
Appreciate Cardiology input
# Benign Hypertension
hold hydrochlorothiazide given hyponatremia
Held lisinopril
Continue verapamil with holding parameters.
# Depression / Insomnia
Held doxepin for now given prolonged QT.
# Pre-DM
Patient reports 'pre-diabetes' - currently on semaglutide.
Follow A1c
DVT Prophylaxis: SCDs
Code Status: Full
d/w family members at bedside
Anticipated Discharge: > 48 hours
Subjective/Interval History
-
Date of Service: July 21, 2024
Objective Data
-
Labs:
Laboratory Results
07/21/24
06:49
WBC 8.2
Hgb 12.2
Hct 37.5
Plt Count 303
Sodium 132 L
Potassium 3.6
Chloride 91 L
Carbon Dioxide 32 H
BUN 20 H
Creatinine 0.8
Glucose 111 H
Calcium 9.0
Vital Signs:
Vital Signs
Temp Pulse Resp BP Pulse Ox
36.6 C 73 20 153/74 97
07/21/24 07:00 07/21/24 07:00 07/21/24 07:00 07/21/24 07:00 07/21/24 07:00
I&O
1207/21/24 07/22/24
06:59 06:59 06:59
Intake Total 1200 / 1200
Output Total 700 / 700
Balance 500 / 500
Review of Systems
-
All other systems: Reviewed and negative
Physical Exam
-
General: Well Developed, Well Nourished, No Apparent Distress, Comfortable and Conversant
HEENT: Normocephalic, Atraumatic, Nose Appears Normal and Ears Appear Normal
Respiratory: Clear to Auscultation
Cardiac: Regular Rhythm and S1/S2
GI: Soft, Nontender and Nondistended
Musculoskeletal: No Clubbing and No Cyanosis
Skin: Warm and Dry
Neuro: Awake and Alert
Psych: Calm and Intact Judgement/Insight
Data Reviewed
-
Labs: Labs Reviewed by me
[2024-07-21 09:48] LABS: Glucose - Point of Care 119 mg/dl (70-99)
[2024-07-21] MEDS: DILAUDID 0.25 MG IV ×3 (09:59→10:24)
[2024-07-21] MEDS: DILAUDID 0.5 MG IV ×2 (10:59→23:01)
[2024-07-21] MEDS: CLEOCIN 50 IV ×3 (10:59→23:01)
[2024-07-21] MEDS: NORMOSOL-R/PLASMALYTE-A 1000 IV ×2 (11:58→21:29)
[2024-07-21 16:43] LABS: Glucose - Point of Care 159 mg/dl (70-99)
[2024-07-21] MEDS: LOVENOX SC (16:46)
--- NOTE | 2024-07-21 17:01 | CM ---
Patient in OR today ORIF R ankle
Case management consult completed. dispo planning
PT/OT to eval post op
PLAN: Await PT/OT eval
[2024-07-21] MEDS: COLACE 100 MG PO (21:18)
[2024-07-21 21:31] LABS: Glucose - Point of Care 136 mg/dl (70-99)
[2024-07-21] MEDS: MELATONIN 3 MG PO (21:47)
[2024-07-22] MEDS: CLEOCIN 50 IV ×2 (05:05→11:22)
[2024-07-22 05:09] VITALS: BP 154/83
[2024-07-22 05:58] LABS: Hematocrit 33.9 % (37.0-47.0); Mean Corp Hgb Conc. 32.4 g/dL (33.0-37.0); Mean Corpuscular Hgb 26.3 pg (27.0-31.0); Mean Corpuscular Volume 80.9 fL (81.0-99.0); Mean Platelet Volume 8.5 fL (7.4-10.4); Platelet Count 293 10^3/uL (130-400); Red Blood Cell Count 4.19 10^6/uL (4.20-5.40); Red Cell Dist. Width 13.7 % (11.5-14.5); White Blood Cell Count 13.5 10^3/uL (4.8-10.8)
[2024-07-22 06:20] LABS: Blood Urea Nitrogen 22 mg/dl (7-17); Calcium 8.6 mg/dl (8.4-10.2); Carbon Dioxide 28 mmol/L (22-30); Chloride 93 mmol/L (98-107); Estimated Creatinine Clearance 66 ml/min; Glucose 122 mg/dl (70-99); Magnesium 2.1 mg/dl (1.6-2.3); Potassium 3.8 mmol/L (3.5-5.1); Sodium 129 mmol/L (135-145); eGFR > 60.00
[2024-07-22 07:00] VITALS: BP 183/77
[2024-07-22 07:37] LABS: Glucose - Point of Care 115 mg/dl (70-99)
[2024-07-22] MEDS: COLACE PO ×2 (08:27→08:30)
[2024-07-22] MEDS: CALAN EXTENDED RELEASE 240 MG PO (08:27)
[2024-07-22] MEDS: MIRALAX 17 GRAMS PO (08:57)
--- NOTE | 2024-07-22 10:48 | W.PN.UPDATE ---
Update Note
Progress Note Update
Comfortable
VSS
Dressing D and I
R LE NVI
Continue rehab NonWB R LE
DVT prophylaxis with Lovenox--Would recommend for 3 weeks followed by Aspirin 325 mg once daily for 3 additional weeks
have F/U with me as outpt in about 10-14 days
kaylyn
GGMD
--- NOTE | 2024-07-22 11:12 | W.PN.HOSP.TC ---
Addendum entered and electronically signed by Sheridan Hills MD 07/22/24 16:48:
total DC time 40 min
Original Note:
Today's Communication/Plan
-
see A/P
Assessment / Plan
Assessment / Plan
73y woman with broken ankle
AP:
# Trimalleolar Fracture of R Ankle
Maintain splint / immobilization. Non-weight bearing.
s/p ORIF right trimalleolar ankle fracture 07/[address] Anderson.
DVT ppx with SQ Lovenox for 3 weeks followed by Aspirin 325 mg once daily for 3 additional weeks per ortho
PT OT eval
# Fall at Home
No reported syncope, LOC, etc.
# Prolonged Qtc has resolved
Avoid QT prolonging medications.
Appreciate Cardiology input
# Benign Hypertension
hold hydrochlorothiazide given hyponatremia
Resume PASSENGER INTERLINE CLERK losartan
Continue verapamil with holding parameters.
IV hydralazine PRN
# Depression / Insomnia
Off PASSENGER INTERLINE CLERK doxepin due to prolonged QTc on admission
# Pre-DM
Patient reports 'pre-diabetes' - currently on semaglutide.
A1c at 5.8%
DVT Prophylaxis: lovenox SQ
Code Status: Full
DW RN
d/w family members at bedside
Anticipated Discharge: 24 - 48 hours
Subjective/Interval History
-
Date of Service: July 22, 2024
Objective Data
-
Labs:
Laboratory Results
07/22/24
04:21
WBC 13.5 H
Hgb 11.0 L
Hct 33.9 L
Plt Count 293
Sodium 129 L
Potassium 3.8
Chloride 93 L
Carbon Dioxide 28
BUN 22 H
Creatinine 0.7
Glucose 122 H
Calcium 8.6
Vital Signs:
Vital Signs
Temp Pulse Resp BP Pulse Ox
36.7 C 70 19 183/77 97
07/22/24 07:00 07/22/24 07:00 07/22/24 07:00 07/22/24 07:00 07/22/24 07:00
I&O
07/21/24 07/22/24 07/23/24
06:59 06:59 06:59
Intake Total 1200 / 1200 2920 / 2920
Output Total 700 / 700
Balance 500 / 500 2920 / 2920
Review of Systems
-
All other systems: Reviewed and negative
Physical Exam
-
General: Well Developed, Well Nourished, No Apparent Distress, Comfortable and Conversant
HEENT: Normocephalic, Atraumatic, Nose Appears Normal and Ears Appear Normal
Respiratory: Clear to Auscultation
Cardiac: Regular Rhythm and S1/S2
GI: Soft, Nontender and Nondistended
Musculoskeletal: No Clubbing and No Cyanosis
Skin: Warm and Dry
Neuro: Awake and Alert
Psych: Calm and Intact Judgement/Insight
Data Reviewed
-
Labs: Labs Reviewed by me
[2024-07-22 12:50] LABS: Glucose - Point of Care 110 mg/dl (70-99)
[2024-07-22] MEDS: COZAAR 50 MG PO (13:08)
--- NOTE | 2024-07-22 13:54 | W.PN.UPDATE ---
Update Note
Progress Note Update
Reviewed the patient's postoperative telemetry. No postoperative ECG was performed.
No arrhythmias on telemetry. Her measured QT interval at a basic heart rate of 72 bpm is 360 ms.
We will sign off please call with further questions.
[2024-07-22 14:08] VITALS: BP 156/75
[2024-07-22] MEDS: LOVENOX 40 MG SC (14:52)
[2024-07-22 15:00] VITALS: BP 167/78
--- NOTE | 2024-07-22 15:02 | CM ---
IMM explained & signed.
Case management consult completed for [facility]
prefers [facility] - tt to weekend coord Edith Moreno - [facility] will accept.
PLAN: home with [facility]
to transport
--- NOTE | 2024-07-22 15:30 | PTCARENOTE ---
Pt instructed on lovenox administration. Demonstrated proper technique. Is comfortable self-administering at home.
[2024-07-22 15:45] VITALS: BP 156/75; PULSE 78
--- NOTE | 2024-07-22 16:37 | W.DCSUMMARY ---
Discharge Summary
Discharge Data
Date of Admission: 07/20/24
Date of Discharge: 07/22/24
-
Pending Results: No
Hospital Course
Principal Diagnosis:
Mechanical fall resulting in right ankle Trimalleolar Fracture.
Hyponatremia
Resolved prolonged QTc
Chronic Diagnoses:�
Benign Hypertension
Depression / Insomnia. Taken off doxepin due to prolonged QTc on admission which has resolved
Pre-diabetes, hemoglobin A1c at 5.8%
Consultations:�
Orthopedic
Procedures:�
ORIF right trimalleolar ankle fracture 07/21/[address] Anderson.
Clinical course:�
This is a 73-year-old female, with past medical history as stated above, who presented with mechanical fall resulting in right ankle fracture.
Problem 1:
Mechanical fall resulting in right ankle Trimalleolar Fracture.
She underwent ORIF for the right trimalleolar ankle fracture on 07/[address] Anderson.
She should continue nonweightbearing of the right leg.
Per Ortho, recommend DVT prophylaxis with Lovenox 40 mg subcu for 3 weeks followed by Aspirin 325 mg once daily for 3 additional weeks.
Patient was cleared by PT OT to return home with home health.
Problem 2:
Hyponatremia.
Her prior to admission hydrochlorothiazide was stopped.
She can check BMP outpatient with result to her PCP.
Problem 3:
Resolved prolonged QTc.
Her initial QTc was noted to be prolonged at 558.
Her subsequent EKG showed resolved prolonged QTc, at 421.
Her prior to admission doxepin was stopped for this reason.
As for the rest of her medical problems, they were stable during her hospital stay.
Discharge Plan
-
Patient Disposition: Home with Home Care
Discharge Diagnosis/Procedures: R ankle trimalleolar fracture status post ORIF on 07/[address] Anderson.
Condition: Fair
Diet: As tolerated
Activity: As tolerated
Additional Activity: Non-weight bearing Right leg
Driving Restrictions: No driving
Referrals:
Eleno Finnegan MD [Family Provider] - in less than 1 week
Additional Discharge Medication Instructions: Continue Lovenox 40 mg SQ for 3 weeks, followed by aspirin 325 mg once daily for 3 additional weeks per ortho
Stop HCTZ due to hyponatremia, continue with Losartan
Prescriptions:
New
losartan 50 mg Tablet
50 mg PO DAILY Qty: 30 0RF
acetaminophen 325 mg Tablet
650 mg PO Q4HPRN PRN (Reason: Mild Pain / Temp > 101) Qty: 30 0RF
enoxaparin 40 mg/0.4 mL Syringe
40 mg SC QPM 21 Days Qty: 8.4 0RF
aspirin 325 mg capsule
325 mg PO DAILY 3 Days Qty: 3 0RF
Rx Instructions:
start AFTER lovenox injection
Continued
verapamil 240 mg Tablet Extended Release
240 mg PO DAILY
pravastatin 20 mg Tablet
20 mg PO HS
Xiidra 5 % Dropperette
1 drp BOTH EYES DAILY
Ozempic 1 mg/dose (4 mg/3 mL) Pen Injector
1 mg SC GALAN
Discontinued
doxepin 50 mg Capsule
50 mg PO HS
losartan-hydrochlorothiazide 50-12.5 mg Tablet
1 tab PO QPM
Discharge Orders:
Discharge Patient (As Directed); Ordered 07/22/24
Ordered By: Sheridan Hills
Discharge Date and Time
Print Language: [place]
== END 2024-07-22 16:19 | disposition home health service (06) | DRG 493 ==
LOC: 4 WEST ACU 05:16
PROVIDERS: Emergency Medicine; Physician Assistant; ADMITTING PHYSICIAN Hospitalist; ATTENDING PHYSICIAN Internal Medicine; EMERGENCY PHYSICIAN Student in an Organized Health Care Education/Training Program; FAMILY PHYSICIAN Family Medicine; OTHER PHYSICIAN Internal Medicine Cardiovascular Disease; OTHER PHYSICIAN Orthopaedic Surgery Hand Surgery
PROC: 0QSG04Z Reposition Right Tibia with Internal Fixation Device, Open Approach (ICD-10-PCS; 2024-07-21)
DX: S82.851A Displaced trimalleolar fracture of right lower leg, initial encounter for closed fracture (principal); E87.1 Hypo-osmolality and hyponatremia; E78.00 Pure hypercholesterolemia, unspecified; I10 Essential (primary) hypertension; R42 Dizziness and giddiness; G47.00 Insomnia, unspecified; R94.31 Abnormal electrocardiogram [ECG] [EKG]; K44.9 Diaphragmatic hernia without obstruction or gangrene; E11.9 Type 2 diabetes mellitus without complications; F32.A Depression, unspecified; K21.9 Gastro-esophageal reflux disease without esophagitis; W18.39XA Other fall on same level, initial encounter; Y93.89 Activity, other specified; Y92.002 Bathroom of unspecified non-institutional (private) residence as the place of occurrence of the external cause; Z96.652 Presence of left artificial knee joint; Z87.891 Personal history of nicotine dependence; Z82.49 Family history of ischemic heart disease and other diseases of the circulatory system; Z88.1 Allergy status to other antibiotic agents; Z88.0 Allergy status to penicillin; Z88.2 Allergy status to sulfonamides; Z90.49 Acquired absence of other specified parts of digestive tract
CPT/HCPCS: 27818; 73600; 73610; 73700; 76000; 80048; 82962; 83036; 83735; 84484; 85025; 85027; 93005; 93306; 97162; 97166; 99285; C1713; C1769

== ENCOUNTER → 2025-04-08 13:12 | Outpatient (REF) | payer OTHER, SELFPAY | LOC: HWWDC 13:12 | PROVIDERS: ATTENDING PHYSICIAN Obstetrics & Gynecology Gynecology; FAMILY PHYSICIAN Family Medicine | DX: Z12.31 Encounter for screening mammogram for malignant neoplasm of breast (principal) | CPT/HCPCS: 77063; 77067 ==